=== PATIENT | male | born 1970 | race Caucasian/White ===

== ENCOUNTER 2020-04-20 11:07 | Emergency (ER) | payer MEDICAID ==
[~2020-04-20] VITALS: Ht 167.6 cm; Wt 35.8 kg
[2020-04-20] MEDS ORDERED: AMLO-257 PO (11:37)
[2020-04-20] MEDS ORDERED: ACETAMINOPHEN 500 MG TABLET PO ONE (11:45)
[2020-04-20 13:11] VITALS: BP 128/74
== END 2020-04-20 14:10 | disposition home or self-care (01) ==
LOC: EMS 11:10
DX: S82.031A Displaced transverse fracture of right patella, initial encounter for closed fracture (principal); S00.31XA Abrasion of nose, initial encounter; I10 Essential (primary) hypertension; W19.XXXA Unspecified fall, initial encounter; Y93.89 Activity, other specified; Y92.89 Other specified places as the place of occurrence of the external cause; Y99.8 Other external cause status